=== PATIENT | female | born 1995 | race Caucasian/White ===

== ENCOUNTER 2016-12-06 12:24 | Emergency (ER) | payer OTHER ==
[~2016-12-06] VITALS: Ht 154.9 cm; Wt 56.0 kg
[2016-12-06 15:05] VITALS: BP 98/70
== END 2016-12-06 15:05 | disposition home or self-care (01) ==
LOC: ED 12:24
DX: R42 Dizziness and giddiness (principal); R11.0 Nausea
CPT/HCPCS: J8597; Q0162

== ENCOUNTER 2018-03-24 11:10 | Emergency (ER) | payer OTHER ==
[2018-03-24 12:07] VITALS: BP 120/76
== END 2018-03-24 12:07 | disposition home or self-care (01) ==
LOC: ED 11:10
DX: H92.03 Otalgia, bilateral (principal); L29.9 Pruritus, unspecified

== ENCOUNTER 2019-01-30 14:23 | Emergency (ER) | payer OTHER ==
[~2019-01-30] VITALS: Ht 157.5 cm; Wt 60.3 kg
[2019-01-30 14:48] VITALS: Ht 157.5 cm; Wt 60.3 kg
[2019-01-30 17:01] VITALS: BP 115/79
== END 2019-01-30 18:34 | disposition home or self-care (01) ==
LOC: ED 14:23
DX: J11.1 Influenza due to unidentified influenza virus with other respiratory manifestations (principal)
CPT/HCPCS: 87804; J0780; J1885